=== PATIENT | male | born 1955 | race Caucasian/White ===

== ENCOUNTER → 2017-05-19 | Outpatient (CLI) | payer BC | END | disposition home or self-care (01) | LOC: GMAB 11:54 | PROVIDERS: ATTEND Family Medicine | DX: Z00.01 Encounter for general adult medical examination with abnormal findings (principal) ==

== ENCOUNTER 2018-04-06 05:26 | Day surgery (SDC) | payer BC ==
[2018-04-06] MEDS ORDERED: TROP 1%/CYCLOPEN 1%/PHENYL 2% DROPS ONE (06:01)
[2018-04-06] MEDS ORDERED: MIDAZOLAM INJ 2 MG/2 ML VIAL ONE ×2 (06:38→08:46)
[2018-04-06] MEDS: PROPARACAINE 0.5% OPHTH SOL 15 ML BTTL ONE (08:39)
[2018-04-06] MEDS: LIDOCAINE 1% MPF 5 ML VIAL INJ ONE (08:51)
[2018-04-06] MEDS: DEXAMETHASONE 0.1% OPHTH SOL 1 DROP RIGHT_EYE ONE ×2 (08:52→09:05)
[2018-04-06] MEDS: BRIMONIDINE 0.2% OPHTH DROPS RIGHT_EYE ONE ×2 (08:53→09:05)
[2018-04-06] MEDS: TOBRAMYCIN SULF 0.3 % OPHT SOL 1 DROP RIGHT_EYE ONE ×2 (08:53→09:05)
== END 2018-04-06 09:42 | disposition home or self-care (01) ==
LOC: AMB 05:26
PROVIDERS: ATTEND Ophthalmology
DX: H26.9 Unspecified cataract (principal); I25.10 Atherosclerotic heart disease of native coronary artery without angina pectoris; I25.2 Old myocardial infarction; E66.9 Obesity, unspecified; Z79.02 Long term (current) use of antithrombotics/antiplatelets; Z79.899 Other long term (current) drug therapy
CPT/HCPCS: 00142; 66984; J2250

== ENCOUNTER → 2018-05-27 | Outpatient (CLI) | payer BC | LOC: GMAE 10:32 | PROVIDERS: ATTEND Family Medicine | DX: E78.5 Hyperlipidemia, unspecified (principal); Z12.5 Encounter for screening for malignant neoplasm of prostate ==

== ENCOUNTER 2018-06-03 06:12 | Day surgery (SDC) | payer BC ==
[2018-06-03] MEDS ORDERED: LIDOCAINE 1% 10 ML VIAL INJ ONE (12:00)
[2018-06-03] MEDS ORDERED: PROPOFOL 200 MG/20 ML VIAL IV ONE (12:00)
[2018-06-03] MEDS ORDERED: LACTATED RINGERS 1,000 ML ONE (12:30)
[2018-06-03] MEDS ORDERED: fentaNYL CITRATE INJ 50 MCG/ML AMP ONE (13:10)
--- NOTE | 2018-06-03 13:46 | OP ---
DATE OF PROCEDURE: 06/03/18 PREPROCEDURE DIAGNOSIS: 1. Screening for colorectal cancer. POSTPROCEDURE DIAGNOSIS: 1. Diverticulosis in the sigmoid. 2. Small internal hemorrhoids. PROCEDURE: 1. Colonoscopy. SURGEON: Ismael Sethi MD COMPLICATIONS: No immediate complications. SEDATION: The patient was sedated via IV propofol by the Anesthesia Department. CONSENT: Prior to the procedure, risks, benefits and alternatives to the therapy were discussed with the patient. The risks included bleeding, infection , perforation and . The patient agreed to the procedure and signed a consent. PREPROCEDURE ANESTHESIA ASSESSMENT: Mallampati class type 2, ASA grade assessment type 2. Throughout the procedure, the patient's vital signs were closely monitored. PROCEDURE: The patient was placed in the left lateral decubitus position and a rectal examination was performed. The rectal examination was within normal limits. The Olympus colonoscope was passed in the anus, rectum, traversing the colon to the level of the cecum as identified by the appendiceal orifice. The scope was retracted and the mucosa was visualized. The entirety of the exam was performed under direct visualization. Retroflexion was performed in the rectum. Preparation quality was good. The withdrawal time was greater than 6 minutes. The patient tolerated the procedure well. FINDINGS: 1. Mild diverticulosis was found in the sigmoid colon. 2. Small, non-bleeding internal hemorrhoids were found on retroflexion. 3. Otherwise, the examination of the colon was grossly unremarkable. RECOMMENDATION: 1. Return the patient home. 2. Resume previous diet. 3. Repeat colonoscopy in 10 years. 4. Primary care physician may check FIT/Cologuard in the next 3 to 5 years. 5. Findings were discussed with the patient and family members. 6. Return to referring physician's office as previously scheduled. #[id number] MTDD
[2018-06-03 14:19] VITALS: BP 134/72; TEMP 97.2; O2SAT 96
== END 2018-06-03 14:12 | disposition home or self-care (01) ==
LOC: AMB 06:12
PROVIDERS: ATTEND Internal Medicine Gastroenterology
DX: Z12.11 Encounter for screening for malignant neoplasm of colon (principal); K57.30 Diverticulosis of large intestine without perforation or abscess without bleeding; K64.8 Other hemorrhoids; E78.5 Hyperlipidemia, unspecified; I25.10 Atherosclerotic heart disease of native coronary artery without angina pectoris; I25.2 Old myocardial infarction; F32.9 Major depressive disorder, single episode, unspecified; Z95.5 Presence of coronary angioplasty implant and graft; Z86.73 Personal history of transient ischemic attack (TIA), and cerebral infarction without residual deficits; Z79.02 Long term (current) use of antithrombotics/antiplatelets; Z79.82 Long term (current) use of aspirin; Z79.899 Other long term (current) drug therapy
CPT/HCPCS: 00812; 45378; J3010; J3490; J7120

== ENCOUNTER → 2020-02-09 | Outpatient (CLI) | payer MEDICARE | LOC: GMAE 10:13 | PROVIDERS: ATTEND Family Medicine | DX: Z12.5 Encounter for screening for malignant neoplasm of prostate (principal); Z79.899 Other long term (current) drug therapy | CPT/HCPCS: 84443; G0103 ==